=== PATIENT | male | born 1945 | race Caucasian/White ===

== ENCOUNTER 2020-01-30 16:50 | Outpatient (CLI) | payer MEDICARE, SELFPAY ==
--- NOTE | 2020-01-30 16:54 | CT_ITS ---
WS: [id number] CT ABDOMEN AND PELVIS NONCONTRAST HISTORY: ACUTE RIGHT FLANK PAIN TECHNIQUE: Imaging performed through the abdomen and pelvis. Coronal and sagittal reformats are submi tted. All CT scans at [facility] use at least one of these dose optimization techniques: automated exposure control; mA and/or kV adjustment per patient size (includes targeted exams where d ose is matched to clinical indication); or iterative reconstruction. DLP: 1184.25 mGy-cm. COMPARISON: 11/24/2016 Lower thorax: Lung bases are clear. No hiatal hernia. Liver: Normal, no mass or intrahepatic dilatation. Gallbladder: Unremarkable. Pancreas: Normal. Spleen: Normal size with granulomata. Adrenal glands: Normal. Right kidney: Normal size kidney. 2 mm nonobstructing calcification in the upper pole. Lower pole 2.3 cm low-attenuation mass which may be a cyst. Cannot further characterize on a nonenhanced study. No hydronephrosis or hydroureter. No renal or ureteral obstruction. Left kidney: Normal size kidney. There are several 2 to 3 mm calcifications which are nonobstructing. Very mild perinephric stranding. LEFT ureter is not dilated. Mild atherosclerosis with no aneurysm. No free fluid, intraperitoneal air or significant lymphadenopathy. GI tract: Normal appendix. Mild constipation and numerous diverticula in the descending and sigmoid c olon. No evidence for an acute diverticulitis. Abdominal wall: Small umbilical hernia contains fat. Pelvis: Well-distended urinary bladder. Very dense calcification in the prostate gland. No free fluid or adenopathy in the pelvis. Osseous structures: 8.4 mm anterolisthesis of L5. Bilateral L5 pars defects. Component of central and foraminal stenosis at the L4 and L5 levels. CT/CT kidney stone [id number] IMPRESSION: 1. No renal obstruction or ureteral calcifications. 2. Bilateral renal nephrolithiasis with no obstruction. 3. Diverticulosis in the descending and sigmoid colon with no acute diverticul itis. 4. Normal appendix. 5. Constipation. 6. 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
== END 2020-01-30 16:51 | disposition home or self-care (01) ==
LOC: RADWPI 16:50
PROVIDERS: Family Provider Family Medicine; PCP Family Medicine; Visit Provider Urology
DX: N20.0 Calculus of kidney (principal); K57.30 Diverticulosis of large intestine without perforation or abscess without bleeding; K59.00 Constipation, unspecified; M47.896 Other spondylosis, lumbar region
CPT/HCPCS: 74176

== ENCOUNTER 2020-02-04 12:22 | Outpatient (CLI) | payer MEDICARE, SELFPAY ==
--- NOTE | 2020-02-04 13:00 | XR_ITS ---
WS: [id number] XR KUB [id number] REASON FOR EXAM: RENAL CALCULUS FINDINGS: Calcified densities in both kidneys are noted. In the pelvis and proximal right ureter there appears to be a small calcified density. There is no obstructive pattern seen. There is normal pelvis and lumbar spine. XR/XR KUB 35174 IMPRESSION: Bilateral renal calculus A questionable small calculus in the proximal right ureter.
== END 2020-02-04 12:23 | disposition home or self-care (01) ==
LOC: RAD 12:25
PROVIDERS: Family Provider Family Medicine; PCP Family Medicine; Visit Provider Urology
DX: N20.0 Calculus of kidney (principal)
CPT/HCPCS: 74018; 81001

== ENCOUNTER 2021-02-03 12:19 | Outpatient (CLI) | payer MEDICARE, SELFPAY ==
--- NOTE | 2021-02-03 13:15 | XR_ITS ---
WS: [id number] XR KUB [id number] REASON FOR EXAM: Stones FINDINGS: No urinary tract calculi are identified on the current examination. No urinary tract calculi are iden tified on the previous examination of 02/04/2020. There are 2 small calculi in the left kidney and 2 c alculi in the right kidney on a CT scan of 01/30/2020. XR/XR KUB 51629 IMPRESSION: No urinary tract calculi are identifiable.
== END 2021-02-03 12:20 | disposition home or self-care (01) ==
LOC: RAD 12:24
PROVIDERS: PCP Family Medicine; Visit Provider Urology
DX: N20.0 Calculus of kidney (principal)
CPT/HCPCS: 74018; 81003; G0103

== ENCOUNTER 2025-08-04 12:37 | Emergency (ER) | payer MEDICARE, SELFPAY ==
[2025-08-04 12:46] VITALS: BP 104/65; PULSE 58; RESP 16; TEMP 36.6; O2SAT 97; BMI 23.5
--- OUTSIDE RECORDS SUMMARY | 2025-08-04 12:46 | XMS_ITS | Patient Health Record ---
Author Organization [facility] Address [address] [place] [address], [place] [address] Care Team Providers Care Continuous Improvement Consultant Name Role Phone ALDO PIERRE MD Primary Care Provider Unavailab ghazala Yeung Skylar Unavailable [phone] Jazlyn Javier Unavailable [phone] Allergies No Known Allergies Results Component Value Reference Range Flag Notes Basic Metabolic Panel (BMP) 92107 Reviewed date:07/29/2025 03:45:01 PM Interpretation: Performing Lab: Notes/Report: Diagnosis Description: Chronic kidney disease, stage 3b Diagnosis Description: Hypertensive chronic kidney disease with stage 1 through stage 4 chronic kidney disease, or unspecified chronic kidney disease Diagnosis Description: Type 2 diabetes mellitus with diabetic chronic kidney disease Sodium 141 136-145 MMOL/L Potassium 4.8 3.5-5.1 MMOL/L Chloride 111 98-107 MMOL/L HI CO2 20.2 20.0-31.0 MMOL/L Glucose Serum 95 71-110 MG/DL Testing p erformed at [facility], [address] [place], [place] [address] [address]. CLIA ID#: [id number] BUN 47 7-21 MG/DL HI Creat 2.06 .57-1.17 MG/DL HI Q-tsjnfm-l-benzoquinone imine (NAPQI) is a metabolite of acetaminophen, NAPQI concentrations of apparoximately 10 mg/L correlation to toxic levels of acetaminophen demonstrates a greater than or equil to 10% change in results. NAPQI concentrations greater than this may lead to falsely depressed results for patient samples. Use of this assay is not recommended for patients undergoing treatment with phenindione, due to the potential for falsely depressed results. GFR 32.4 NA Calculation pe rformed from GFR calculator provided by the [employer]. Glomerular Filtration rate(GRF) is the best overall index of kidney function. Normal GFR varies according to age,sex, body size, and declines with age. The [employer] recommends using the CKD-EPI Creatinine Equation(2020) to estimate GFR. Anion Gap 15 5-15 BUN/Creat Ratio 22.8 12.0-20.0 % HI Calcium 9.4 8.7-10.4 MG/DL Osmo Serum,Calculated 304 280-300 MOSM/KG HI Hemoglobin 02950 Reviewed date:07/29/2025 03:45:01 PM Interpretation: Performing Lab: Notes/Report: Diagnosis Description: Chronic kidney disease, stage 3b Diagnosis Description: Hypertensive chronic kidney disease with stage 1 through stage 4 chronic kidney disease, or unspecified chronic kidney disease Diagnosis Description: Type 2 diabetes mellitus with diabetic chronic kidney disease Hgb 12.0 13.5-17.5 G/DL LOW US Renal w/bladder-63814 (No t yet reviewed by provider) Interpretation: Performing Lab: Notes/Report: [id number]=iSite Schedule Confirmation (Not y et reviewed by provider) Interpretation: Performing Lab: Notes/Report: US Renal w/bladder US Renal w/bladder-03978 (No t yet reviewed by provider) Interpretation: Performing Lab: Notes/Report: See Below For Report US Renal w/bladder Diagnosis Description: Chronic kidney disease, stage 3b Read See Below For Report Schedule Confirmation Reviewed date:07/29/2025 04:10:32 PM Interpretation: Performing Lab: Notes/Report: US Renal w/bladder UA Without Micro-Auto, [place] - 19690 Reviewed date:07/04/2025 11:13:05 AM Interpretation: Performing Lab: Notes/Report: Color yellow Clarity clear Glucose - Bili - Ketones - Sp [facility] 1.020 Blood - pH 6.0 Protein - Urobili - Nitrites - Leukocytes - Reason For Referral No Information Medications Medication SIG (Take, Route, Frequency, Duration) Notes Start Date End Date Status Metoprolol Tartrate 25 MG Tablet 1 tablet with food Orally daily; Duration: 30 days 07/22/2025 Active metFORMIN HCl ER 500 MG Tablet Extended Release 24 Hour 1 tablet with evening meal Orally twice a day Active Simvastatin 20 MG Tablet 1 tablet in the evening Orally Once a day Active diphenhydrAMINE HCl 25 MG Capsule 2 capsule at bedtime as needed Orally daily Active Immunizations Vaccine Route Administration Date Status Comme nts Influenza (split), seasonal, intradermal, preservative free Unknown 10/01/2019 Administered Pneumococcal conjugate PCV 13 Unknown 01/25/2017 Admini stered Social History Social History Depression Screening Social Info Question Answer Notes PHQ-9 Little interest or pleasure in doing thin gs Not at all Feeling down, depressed, or hopeless Not at all Trouble falling or staying asleep, or sleeping t oo much Several days Feeling tired or having little energy Several da ys Poor appetite or overeating Not at all Feeling bad about yourself, or that you are a failure, or have let yourself or your family down Not at all Trouble concentrating on thi ngs, such as reading the newspaper or watching television Not at all Moving or speaking so slowly that other people could have noticed. Or the opposite ? being so fidgety or restless that you have been moving around a lot more than usual Not at all Thoughts that you would be b wei off , or of hurting yourself in some way Not at all Total Score 2 Interpretation Minimal Depression Tobacco Use: Social Info Question Answer Notes xTobacco Use/Smoking Are you a current every day sm oker Additional Details Category Social Info Options Details Miscellaneous: Marital status: 4, 3 Children: 2 : none Level of Education: 10th grade Current Employment Status Retire d Section Notes: Patient admits to smoking 5 cigars daily. Patient denies current alcohol or illegal drug use. Patient admits to previously drinking 2-3 beers 5 days a week. 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.22) Active confirmed Problem Chronic kidney disease due to hypertension (469345008533169) Hypertensive chronic kidney disease with stage 1 through stage 4 chronic kidney disease, or unspecified chronic kidney disease (I12.9) Active confirmed Problem Nephrolithiasis (92005280) Nephrolithiasis (N20.0) Active confirmed Problem Gout (01770365) Gout, unspecifie d cause, unspecified chronicity, unspecified site (M10.9) Active confirmed Problem Benign prostatic hyperplasia (971712583) BPH (benign prostatic hyperplasia) (N40.0) Active confirmed Problem Recurrent nephrolithiasis (3288735159876981) Recurrent nephrolithiasis (N20.0) Active confirmed Problem Chronic kidney disease stage 3B (disorder) (889417810) Chronic kidney disease, stage 3b (N18.32) Active confirmed Vital Signs Heart Rate 84 /min 07/04/2025 Temperature 97.9 degrees Fahrenheit 07/04/2025 Height-cm 170.18 cm 07/04/2025 Oximetry 98 % 07/04/2025 Weight-kg 70.2 kg 07/04/2025 Height 67 in 07/04/2025 Weight 154.76 lbs 07/04/2025 BMI 24.24 kg/m2 07/04/2025 Encounters Encounter Location Date Provider Diagnosis [facility] [address] [place] [address] 07/04/2025 Skylar Yeung Chronic kidney disea se, stage 3b N18.32 ; Hypertensive chronic kidney disease with stage 1 through stage 4 chronic kidney disease, or unspecified chronic kidney disease I12.9 ; Type 2 diabetes mellitus with diabetic chronic kidney disease E11.22 ; Microalbuminuria R80.9 ; Symptomatic hypotension I95.9 ; Gout, unspecified cause, unspecified chronicity, unspecified site M10.9 ; Renal cyst N28.1 ; Nephrolithiasis N20.0 and BPH (benign prostatic hyperplasia) N40.0 [facility] [address] [place] [address] 08/04/2025 Jazlyn Javier [facility] [address] [place] [address] [address] [place] [address] 07/04/2025 Skylar Yeung [facility] [address] [place] [address] 07/07/2025 Skylar Yeung Symptomatic hypotens ion I95.9 and Hypertensive chronic kidney disease with stage 1 through stage 4 chronic kidney disease, or unspecified chronic kidney disease I12.9 Assessments Encounter Date Diagnosis (ICD Code) Assessment Notes Treatment Notes Treatment Clinical Notes Section Notes 07/04/2025 Chronic kidney disease, stage 3b (ICD-10 - N18.32) CKD is stage I IIb based on available records since 2019. CKD is secondary to HTN, diabetes and tubulointerstitia l disease (NSAID use with ACEi) . His symptoms are concerning for urinary retention with use of Benadryl (Tylenol PM) and history of BPH. HTN is overly controlled in clinic with unknown control at home. Suspect periods of hypotension at home given complaints of dizziness. Diabetes control is unknown. Microalbuminuria is moderate. History of nephrolithiasis, BPH and renal cysts with no routine Urology follow up. Gout is controlled without therapy. 07/04/2025 Hypertensive chronic kidney disease with stage 1 through stage 4 chronic kidney disease, or unspecified chronic kidney disease (ICD-10 - I12.9) CKD is stage III b based on available records since 2019. CKD is secondary to HTN, diabetes and tubulointerstitia l disease (NSAID use with ACEi) . His symptoms are concerning for urinary retention with use of Benadryl (Tylenol PM) and history of BPH. HTN is overly controlled in clinic with unknown control at home. Suspect periods of hypotension at home given complaints of dizziness. Diabetes control is unknown. Microalbuminuria is moderate. History of nephrolithiasis, BPH and renal cysts with no routine Urology follow up. Gout is controlled without therapy. 07/07/2025 Symptomatic hypotension (ICD-10 - I95.9) 07/07/2025 Hypertensive chronic kidney disease with stage 1 through stage 4 chronic kidney disease, or unspecified chronic kidney disease (ICD-10 - I12.9) 07/04/2025 Type 2 diabetes mellitus with diabetic chronic kidney disease (ICD-10 - E11.22) CKD is stage I IIb based on available records since 2019. CKD is secondary to HTN, diabetes and tubulointerstitia l disease (NSAID use with ACEi) . His symptoms are concerning for urinary retention with use of Benadryl (Tylenol PM) and history of BPH. HTN is overly controlled in clinic with unknown control at home. Suspect periods of hypotension at home given complaints of dizziness. Diabetes control is unknown. Microalbuminuria is moderate. History of nephrolithiasis, BPH and renal cysts with no routine Urology follow up. Gout is controlled without therapy. 07/04/2025 Microalbuminuria (ICD-10 - R80.9) CKD is stage II Ib based on available records since 2019. CKD is secondary to HTN, diabetes and tubulointerstitia l disease (NSAID use with ACEi) . His symptoms are concerning for urinary retention with use of Benadryl (Tylenol PM) and history of BPH. HTN is overly controlled in clinic with unknown control at home. Suspect periods of hypotension at home given complaints of dizziness. Diabetes control is unknown. Microalbuminuria is moderate. History of nephrolithiasis, BPH and renal cysts with no routine Urology follow up. Gout is controlled without therapy. 07/04/2025 Symptomatic hypotension (ICD-10 - I95.9) CKD is stage II Ib based on available records since 2019. CKD is secondary to HTN, diabetes and tubulointerstitia l disease (NSAID use with ACEi) . His symptoms are concerning for urinary retention with use of Benadryl (Tylenol PM) and history of BPH. HTN is overly controlled in clinic with unknown control at home. Suspect periods of hypotension at home given complaints of dizziness. Diabetes control is unknown. Microalbuminuria is moderate. History of nephrolithiasis, BPH and renal cysts with no routine Urology follow up. Gout is controlled without therapy. 07/04/2025 Gout, unspecified cause, unspecified chronicity, unspecified site (ICD-10 - M10.9) CKD is stage II Ib based on available records since 2019. CKD is secondary to HTN, diabetes and tubulointerstitia l disease (NSAID use with ACEi) . His symptoms are concerning for urinary retention with use of Benadryl (Tylenol PM) and history of BPH. HTN is overly controlled in clinic with unknown control at home. Suspect periods of hypotension at home given complaints of dizziness. Diabetes control is unknown. Microalbuminuria is moderate. History of nephrolithiasis, BPH and renal cysts with no routine Urology follow up. Gout is controlled without therapy. 07/04/2025 Renal cyst (ICD-10 - N28.1) obtain renal ultrasound CKD is stage IIIb based on available records since 2019. CKD is secondary to HTN, diabetes and tubulointerstitia l disease (NSAID use with ACEi) . His symptoms are concerning for urinary retention with use of Benadryl (Tylenol PM) and history of BPH. HTN is overly controlled in clinic with unknown control at home. Suspect periods of hypotension at home given complaints of dizziness. Diabetes control is unknown. Microalbuminuria is moderate. History of nephrolithiasis, BPH and renal cysts with no routine Urology follow up. Gout is controlled without therapy. 07/04/2025 Nephrolithiasis (ICD-10 - N20.0) obtain renal ultrasound CKD is stage IIIb based on available records since 2019. CKD is secondary to HTN, diabetes and tubulointerstitia l disease (NSAID use with ACEi) . His symptoms are concerning for urinary retention with use of Benadryl (Tylenol PM) and history of BPH. HTN is overly controlled in clinic with unknown control at home. Suspect periods of hypotension at home given complaints of dizziness. Diabetes control is unknown. Microalbuminuria is moderate. History of nephrolithiasis, BPH and renal cysts with no routine Urology follow up. Gout is controlled without therapy. 07/04/2025 BPH (benign prostatic hyperplasia) (ICD-10 - N40.0) obtain renal ultrasound with pre and post void bladder scan. CKD is stage IIIb based on available records since 2019. CKD is secondary to HTN, diabetes and tubulointerstitia l disease (NSAID use with ACEi) . His symptoms are concerning for urinary retention with use of Benadryl (Tylenol PM) and history of BPH. HTN is overly controlled in clinic with unknown control at home. Suspect periods of hypotension at home given complaints of dizziness. Diabetes control is unknown. Microalbuminuria is moderate. History of nephrolithiasis, BPH and renal cysts with no routine Urology follow up. Gout is controlled without therapy. 07/04/2025 Other Check BMP and Hgb today at [facility] for updated labs. With hypotension, hold lisinopril. Monitor blood pressure daily at home and report BP out of goal range (130/80 or less but greater than 100/50). Obtain renal ultrasound. Stop Tylenol PM and Aleve use. Follow a low sodium diet. Avoid nephrotoxins. Stay hydrated with at least 48 ounces of water per day. He was encouraged to be aware of high potassium containing foods and to avoid excessive intake of these foods. Monitor potassium level. Monitor uric acid; notify this clinic or PCP for gout symptoms. Monitor microalbuminuria; control diabetes. Consider re-establishing with Urology for BPH, renal cysts, nephrolithiasis history and LUTS. Monitor hyperparathyroidism labs. Follow up in 5-[address] labs [address] [facility] 5-10 days prior to appt BMP, PTH, phos, uric, Hgb, iron studies, urine protein, urine creat, urine microalbumin, serum albumin CKD is stage IIIb based on available records since 2019. CKD is secondary to HTN, diabetes and tubulointerstitia l disease (NSAID use with ACEi) . His symptoms are concerning for urinary retention with use of Benadryl (Tylenol PM) and history of BPH. HTN is overly controlled in clinic with unknown control at home. Suspect periods of hypotension at home given complaints of dizziness. Diabetes control is unknown. Microalbuminuria is moderate. History of nephrolithiasis, BPH and renal cysts with no routine Urology follow up. Gout is controlled without therapy. Plan Of Treatment Pending Test Test Name Order Date CT Abdomen, Pelvis w/o Contrast-86103 US Renal w/bladder-53890 07/04/2025 US Renal w/bladder-94726 07/31/2025 Schedule Confirmation 07/31/2025 Future Test Test Name Order Date Albumin 58213 12/23/2025 Basic Metabolic Panel (BMP) 69374 2025 Ferritin 56265 12/23/2025 Hemoglobin 64667 12/23/2025 Phosphorus (B) 94458 12/23/2025 Protein (U) Random 59298 12/23/2025 Uric Acid (B) 20086 12/23/2025 Microalbumin (U) Random 25776 12/23/2025 Creatinine (U) 79077 12/23/2025 UA Reflex Micro, Reflex Cult 73308, 8101 5, 19892 12/23/2025 PTH Intact 02704 12/23/2025 % Iron Saturation (Fe & TIBC)--13246,835 50 12/23/2025 Next Appt Details Provider Name:Skylar Yeung , 01/06/2026 11:00:00 AM, [address] [place] [address] [address], [place], [address], Insurance Providers Payer Name Payer Address Payer Phone Subscriber Number Group Number Insured Name Patient Relationship to Insured Coverage Start Date Coverage End Date [place] Replacement [address] [place] [phone] [id number] o Bremer, Silas Self - patient is the insured Medical (General) History Medical History History ICD Code hypertension kidney stones Diabetes High cholesterol Gout Surgical History Surgery Date(Month/Year) broken jaw broken ankle surgery for kidney stones Hospitalization History Reason Date(Month/Year) see surgical hx
--- OUTSIDE RECORDS SUMMARY | 2025-08-04 12:46 | XMS_ITS | Patient Health Record ---
Author Organization [facility] Address [address] [place] [address] Care Team Providers Care Leather Finisher Name Role Phone Antonio Crowley MD Primary Care Provider KALYN Quezada Unavailable [phone] Reason For Referral No Information Medications Medication SIG (Take, Route, Frequency, Duration) Notes Start Date End Date Status Simvastatin *Pick strength-f orm from [employer] for eRX* Active metFORMIN HCl *Pick strength-f orm from [employer] for eRX* Active Metoprolol Succinate *Reorder fr om [employer] for eRx and Interaction Alerts* Active Immunizations Vaccine Route Administration Date Status Comme nts Influenza (split), seasonal, intradermal, preservative free Unknown 10/01/2019 Administered Immunization G iven by from source eCW:: Pneumococcal conjugate PCV 13 Unknown 01/25/2017 Administered Immunization Giv en by from source eCW:: Problems Problem Type SNOMED Code ICD Code Onset Dates Problem Status W/U Status Risk Notes Problem Recurrent nephrolithiasis (7970812605068176) Recurrent nephrolithiasis (N20.0) Active confirmed Plan Of Treatment Pending Test Test Name Order Date CT Abdomen, Pelvis w/o Contrast-38398 Insurance Providers Payer Name Payer Address Payer Phone Subscriber Number Group Number Insured Name Patient Relationship to Insured Coverage Start Date Coverage End Date [place] [address] [place] [id number] [phone] [id number] iSlas Byers Self - patient is the insured Medical (General) History Medical History History ICD Code hypertension kidney stones Surgical History Surgery Date(Month/Year) broken jaw broken ankle
--- OUTSIDE RECORDS SUMMARY | 2025-08-04 12:46 | XMS_ITS | Clinical Summary ---
Author Organization [facility] Address [address] [place] [address] Care Team Providers Care Payroll And Benefits Manager Name Role Phone Clinton Partida DO Primary Care Provider [phone] Allergies No known active allergies Medications metFORMIN (GLUCOPHAGE XR) 500 mg Extended Release 24 hour tablet Take 2 Tablets (1,000 mg) by mouth 2 times daily. 360 Tablet 09/07/2020 Active lisinopriL (PRINIVIL) 10 mg tablet Take 1 Tablet (10 mg) by mouth daily. 90 Tablet 3 03/05/2021 Active sildenafiL (VIAGRA) 50 mg tablet Take 1 Tablet (50 mg) by mouth 1 time daily as needed for Erectile Dysfunction. 10 Tablet 2 03/11/2021 Active simvastatin (ZOCOR) 20 mg tablet Take 1 tablet by mouth once daily 90 Tablet 04/13/2021 Active metoprolol tartrate (LOPRESSOR) 50 mg tablet Take 1 tablet by mouth once daily 90 Tablet 04/13/2021 Active Active Problems Problem Noted Date Diagnosed Date Recurrent kidney stones 01/15/2021 Type 2 DM with diabetic peripheral angiopathy w/ o gangrene 10/09/2020 Tobacco use 10/09/2020 Type 2 diabetes mellitus wit h stage 3a chronic kidney disease, without long-term current use of insulin 07/03/2020 DM type 2 with diabetic mixed hyperlipidemia 05/2020 Hypertensive kidney disease with stage 3a chronic kidney disease 06/26/2020 Atherosclerosis of artery of right lower extremi ty 06/26/2020 Resolved Problems Problem Noted Date Diagnosed Date Resolved Date Essential (primary) hypertension 10/09/2020 01/15/2021 Immunizations Immunization Administration Dates Next Due (PREVNAR 13)(6 WKS UP) PNEUM OCOCCAL CONJUGATE (PCV13) 0.5 ML, IM 10/09/2020 INFLUENZA VACCINE QUADRIVALENT RECOMB 18 YR UP P F IM 08/25/2020 Social History Tobacco Use Types Packs/Day Years Used Date Smoking Tobacco: Every Day Cigarettes 0.3 30 Cigars Smokeless Tobacco: Never Tobacco Cessation:Ready to Q uit: No; Counseling Given: Yes Alcohol Use Standard Drinks/Week Comments Not Currently 0 (1 standard drink = 0.6 oz pur e alcohol) Sex and Gender Information Value Date Recorded Sex Assigned at Not on file Legal Sex Male 6:39 AM WINDOWS MOBILE DEVELOPER Gender Identity Not on file Sexual Orientation Not on file Last Filed Vital Signs Vital Sign Reading Time Taken Comments Blood Pressure 134/70 03/05/2021 9:33 AM CDT Pulse 60 03/05/2021 9:33 AM CDT Temperature 35.9 C (96.7 F) 03/05/2021 9:33 AM CDT Respiratory Rate 16 03/05/2021 9:33 AM CDT Oxygen Saturation 94% 03/05/2021 9:33 AM CDT Inhaled Oxygen Concentration - - Weight 77.8 kg (171 lb 9.6 oz) 03/05/2021 9:33 A M CDT Height 170.2 cm (5' 7 ) 03/05/2021 9:33 AM CDT Body Mass Index 26.88 03/05/2021 9:33 AM CDT Plan of Treatment Health Maintenance Due Date Last Done Comments DIABETES ANNUAL FOOT EXAM 1965 DTAP/TDAP/TD VACCINES (1 - Tdap) 1966 ZOSTER VACCINE (1 of 2) 1997 PNEUMOCOCCAL VACCINE 50+ YEA RS (2 of 2 - PPSV23, PCV20, or PCV21) 12/04/2020 10/09/2020 DIABETES MICROALBUMIN ANNUAL SCREEN 07/02/2021 07/02/2020 LDL CHOLESTEROL ANNUAL 07/02/2021 0, 10/09/2019, 10/09/2019 DIABETES HBA1C Q 6 MONTHS 07/15/20212020, 10/09/2020, 07/02/2020 RSV VACCINE (60+ or ) (1 - 1-dose 75+ series) 2022 Medicare Advantage ([place]) Preventative Visit/Annual Wellness Visit 11/20/2024 03/04/2024, 08/21/2023, 09/23/2021 INFLUENZA VACCINE (#1) 2025 08/25/2020 DIABETES ANNUAL RETINAL EXAM 10/11/2025, 05/03/2021, 10/09/2020, Additional history exists Procedures Procedure Name Priority Date/Time Associated Diagnosis Comments DIABETES EYE EXAM Routine 05/03/2021 HEMOGLOBIN A1C Routine 01/15/2021 9:31 AM WINDOWS MOBILE DEVELOPER DM type 2 with diabetic mixed hyperlipidemia ([facility]) Type 2 diabetes mellitus with diabetic peripheral angiopathy without gangrene, without long-term current use of insulin ([facility]) Type 2 diabetes mellitus with stage 3a chronic kidney disease, without long-term current use of insulin ([facility]) MICROALBUMIN/CREATI NINE RATIO, RANDOM UR Routine 07/02/2020 8:09 AM CDT DM type 2 with diabetic mixed hyperlipidemia ([facility]) LIPID PANEL Routine 07/02/2020 8:09 AM CDT DM type 2 with diabetic mixed hyperlipidemia ([facility]) Essential hypertension from Last 3 Months or Most Recently Relevant to Health Maintenance Results * DIABETES EYE EXAM (05/03/2021) us Abstract Spg Provider HEALTH MAINTENANCE Final R esult * (ABNORMAL) HEMOGLOBIN A1C (01/15/2021 9:31 AM WINDOWS MOBILE DEVELOPER) HEMOGLOBIN A1C 6.9(H) See Comment % 01/15/2021 9:44 PM WINDOWS MOBILE DEVELOPER [facility] EST. AVG GLUCOSE, A1C 151 mg/dL 01/15/2021 9:44 PM WINDOWS MOBILE DEVELOPER [facility] Blood Venipuncture / Unknown 01/15/2021 9:31 AM WINDOWS MOBILE DEVELOPER 01/15/2021 9:17 PM WINDOWS MOBILE DEVELOPER Narrative [facility] - 01/15/2021 9:44 PM WINDOWS MOBILE DEVELOPER HGB A1C INTERPRETATION NORMAL: <5.7% PRE-DIABETES: 5.7 - 6.4% DIABETES: 6.5% OR GREATER Falsely low A1C measurements can occur when: 1. Anemia and/or hemolytic anemia is present. 2. Hemoglobin variants present. 3. Renal failure. 4. Transfusion of blood product in the last 120 days. We recommend ordering a fructosamine test([id number]) to more accurately assess glycemic status if any of the above conditions are present. Garrett Partida MD CHEMISTRY ORDERABLES Final Resu lt Performing Organization Address [facility] Co de Phone Number [facility] CLIA# [id number] [address] [place] [address] * (ABNORMAL) MICROALBUMIN/CREATININE RATIO, RANDOM UR (07/02/2020 8:09 AM CDT) MICROALBUMIN, URINE 12.8 No Reference Range mg/dL 07/02/2020 9:39 PM CDT [facility] CREATININE, URINE 183.9 40.0 - 278.0 mg/dL 07/02/2020 9:39 PM CDT [facility] Comment:Reference Range vari es with fluid intake and diet. MICROALBUMIN/ CREAT RATIO, UR 69.6(H) <17.0 mg/g 07/02/2020 9:39 PM T [facility] Urine URINE SPECIMEN OBTAINED BY CLEAN CATCH PROCEDURE / Unknown Collection / Unknown 07/02/2020 8:09 AM CDT 07/02/2020 8:08 PM CDT Narrative [facility] - 07/02/2020 9:39 PM CDT Condition Microalbumin/Creat ratio Normal Males <17 Normal Females <25 Microalbuminuria Males 17-299 Microalbuminuria Females 25-299 Overt proteinuria >=300 Garrett Partida MD URINE ORDERABLES Final Result Performing Organization Address [facility]/ZIP Co de Phone Number [facility] CLIA# [id number] [address] [place] [address] * (ABNORMAL) LIPID PANEL (07/02/2020 8:09 AM CDT) CHOLESTEROL 106 <200 mg/dL 07/02/2020 9:19 PM CDT [facility] TRIGLYCERIDE 167(H) <150 mg/dL 07/02/2020 9:19 PM CDT [facility] HDL 33(L) 40 - 59 mg/dL 07/02/2020 9:19 PM CDT [facility] LDL CALCULATED 40 <100 mg/dL 07/02/2020 9:19 PM CDT [facility] NON-HDL CHOLESTEROL 73 <130 mg/dL 07/02/2020 9:19 PM T [facility] Blood Venipuncture / Unknown 07/02/2020 8:09 AM CDT 07/02/2020 8:14 PM CDT Narrative [facility] - 07/02/2020 9:19 PM CDT TOTAL CHOLESTEROL mg/dL Desirable <200 Borderline high 200-239 High >=240 TRIGLYCERIDES mg/dL Normal <150 Borderline high 150-199 High 200-499 Very high >=500 HDL CHOLESTEROL mg/dL Low <40 Normal 40-59 Desirable >=60 NON HDL CHOLESTEROL mg/dL Optimal <130 Near Optimal 130-159 Borderline High 160-189 Very High >=190 CALCULATED LDL mg/dL LDL <70, OPTIMAL if have Atherosclerotic cardiovascular disease (ASCVD) or intermediate or higher (>7.5%) 10 year risk of ASCVD including most adults with diabetes. LDL <100, Optimal in adult patients with low (<7.5%) 10 year ASCVD risk LDL 100-160, Suboptimal LDL >160, High LDL >190, Very high ATPIII Guidelines Reference Ranges for Lipid Panels (NCEP/AMA) . us Garrett Partida MD CHEMISTRY ORDERABLES Final Resu lt [facility] CLIA# [id number] [address] [place] [address] from Last 3 Months or Most Recently Relevant to Health Maintenance Insurance [facility] Care Teams Payroll And Benefits Manager Relationship Specialty Start Date End Date Clinton Partida DO [address] [place] [address] PCP - General Family Practice 10/09/20
--- OUTSIDE RECORDS SUMMARY | 2025-08-04 12:46 | XMS_ITS | Clinical Summary ---
Author Organization [facility] Facility Address [address] [place] [address] Care Team Providers Care Microsoft Solutions Architect Name Role Phone Hernán Bernal MD Primary Care Provider [phone] Social History Tobacco Use Types Packs/Day Years Used Date Smoking Tobacco: Never Assessed Sex and Gender Information Value Date Recorded Sex Assigned at Not on file Legal Sex Male 10:59 AM EDT Gender Identity Not on file Sexual Orientation Not on file Plan of Treatment Health Maintenance Due Date Last Done Comments Pneumococcal Vaccine: 50+ Years (2 of 2 - PPSV23, PCV20, or PCV21) 12/04/2020 10/09/2020, 01/25/2017 Diabetes: Hemoglobin A1C 03/19/2025 01/15/2021 Diabetes: Ophthalmology Exam 03/19/2025 Diabetes: Pedal Pulse Checked 03/19/2025 Diabetes: Sensory Foot Exam 03/19/2025 Diabetes: Visual Foot Exam 03/19/2025 Influenza Vaccine (#1) 2025 , 08/25/2020, 10/01/2019 Hepatitis B Vaccine Aged Out No longe r eligible based on patient's age to complete this topic Insurance [place]BS [place] Adv ([id number]) Care Teams Microsoft Solutions Architect Relationship Specialty Start Date End Date Hernán Bernal MD [facility] [address] [phone] PCP - General 03/19/25
--- NOTE | 2025-08-04 14:00 | ECG_ITS ---
[facility] Test Date: 2025-08-04 Pat Name: Silas Byers Department: Room: Gender: Male Pilot Submersible: : 1945 Requested By: Jovani Garcia Order Number: [id number] Isidro MD: Ranjit Levin M.D. Measurements Intervals [place] Rate: 58 P: 79 WV: 181 QRS: 70 QRSD: 91 T: 68 QT: 400 QTc: 395 Interpretive Statements SINUS BRADYCARDIA WITH SINUS ARRHYTHMIA Compared to ECG 11/28/2016 14:53:23 Intraventricular conduction delay no longer present Electronically Signed On 08-05-2025 18:11:42 CDT by Ranjit Levin M.D. [id number]
[2025-08-04 15:01] VITALS: BP 100/61; PULSE 54; O2SAT 95
--- NOTE | 2025-08-04 15:04 | XRR_ITS ---
PROCEDURE INFORMATION: Exam: XR Chest Exam date and time: 08/04/2025 3:06 PM Age: 79 years old Clinical indication: Chest pressure; Chest pain, dizzy TECHNIQUE: Imaging protocol: Radiologic exam of the chest. Views: 1 view. COMPARISON: CR XR KUB [id number] 02/03/2021 1:05 PM FINDINGS: Lungs: Unremarkable. No consolidation. Pleural spaces: Unremarkable. No pleural effusion. No pneumothorax. Heart/Mediastinum: Unremarkable. No cardiomegaly. Bones/joints: Degenerative changes are noted in the glenohumeral joints and acromioclavicular joints. XR/XR chest 1V portable [id number] IMPRESSION: No acute findings.
--- NOTE | 2025-08-04 15:04 | W.ED.CHESTPA ---
HPI - Chest Pain General: Chief Complaint: Chest Pain Stated Complaint: cp, off balance, low bp, [place] sent Time Seen by Provider: 08/04/25 14:59 History of Present Illness: 79-year-old male presents emergency room complaining of low blood pressure generally not feeling well the last couple of days. Chest pain was listed as his chief complaint however when you talk to him and when he talked to the nurse he denied having any chest pain at all. He has not had any shortness of breath no nausea or vomiting. No dysuria urgency weakness. He has had some loose stools. Describes generally feeling achy for the last couple of days. Associated symptoms: Deny abdominal pain, dyspnea or fever(s) Related Data Home Medications ?Medication ?Instructions ?Recorded ?Confirmed metformin 500 mg tablet See Rx Instructions PO DAILY 02/04/20 02/03/21 metoprolol tartrate 50 mg tablet 50 mg PO DAILY 02/04/20 02/03/21 simvastatin 20 mg tablet 20 mg PO DAILY 02/04/20 02/03/21 Previous Rx's ?Medication ?Instructions ?Recorded doxycycline hyclate 100 mg capsule 100 mg PO BID 14 days #28 caps 08/04/25 Allergies Allergy/AdvReac Type Severity Reaction Status Date / Time No Known Allergies Allergy Unverified 02/03/21 13:30 Review of Systems Const: Reports: fatigue and malaise; Denies: fever(s) or chills Card: Denies: chest pain Resp: Denies: dyspnea GI: Denies: abdominal pain : Denies: dysuria, urinary frequency or urinary urgency Musc: Denies: neck pain or back pain Skin/Breast: Denies: rash [facility] ED PFSH: Medical History Status post extracorporeal shock wave therapy Chronic prostatitis Renal calculus, left Family History Father , IN HOUSE FIRE No problems noted. Mother , at age 71 Kidney disease Social History Smoking and tobacco/nicotine status: current some day tobacco/nicotine user cigars Alcohol intake: never Marital status: Current occupational status: retired Physical Exam Const: GENERAL APPEARANCE: cooperative ORIENTATION/CONSCIOUSNESS: Yes awake, Yes oriented to person, Yes oriented to place and Yes oriented to time HENMT: COMMON NORMALS: normocephalic, atraumatic and hearing grossly normal bilaterally HEAD & SCALP: normocephalic and atraumatic Resp: COMMON NORMALS: normal respiratory effort, No retractions, No use of accessory muscles and clear to auscultation bilaterally AUSCULTATION: clear to auscultation bilaterally Cardio: COMMON NORMALS: regular rate, regular rhythm and No murmurs present (Cardio) RATE: regular rate RHYTHM: regular rhythm GI: COMMON NORMALS: Soft to palpation and No hepatosplenomegaly present AUSCULTATION: Yes normoactive bowel sounds PALPATION: Yes Soft to palpation, No Tenderness to palpation present (GI), No Guarding due to palpation present (GI) and Yes No hepatosplenomegaly present : OTHER: Mild rash in the groin region originally from tick bite. Extremity: COMMON NORMALS: normal to inspection, capillary refill normal, no clubbing, cyanosis or edema, no calf tenderness and no pedal edema Neuro: SENSORIUM/ORIENTATION: Yes oriented to person, Yes oriented to place and Yes oriented to time Skin: COMMON NORMALS: no rashes or lesions noted GENERAL SKIN EXAM: no rashes or lesions noted Course Vital Signs: Vital signs: Vital Signs Temperature 97.9 F 08/04/25 12:46 Pulse Rate 58 L 08/04/25 15:39 Respiratory Rate 16 08/04/25 12:46 Blood Pressure 101/68 08/04/25 15:39 Pulse Oximetry 96 08/04/25 15:39 Oxygen Delivery Me thod Room Air 08/04/25 12:46 MDM - Chest Pain Medical Decision Making Suspect tickborne illness. Discussed with infectious disease Dr. Dodson she agrees. I will get a tick panel also get tularemia. He should have a repeat CBC in a week initiate doxycycline. Referred to PCP for follow-up. Lab Data 08/04/25 15:31 08/04/25 15:31 Radiology Impressions Chest X-Ray 08/04/25 15:04 IMPRESSION: No acute findings. Laboratory Results WBC 1.93 10^3/uL (3.29-11.43) L 08/04/25 15:31 RBC 4.10 10^6/uL (3.85-5.65) 08/04/25 Hgb 13.10 g/dL (11.27-16.99) 08/04/25 Hct 39.9 % (37-53) 08/04/25 MCV 97.3 fl (82-101) 08/04/25 MCH 32.0 pg (27-33) 08/04/25 MCHC 32.8 g/dL (30-55) 08/04/25 RDW 12.9 % (12.1-15.1) 08/04/25 Plt Count 121 10^3/cmm (157-399) L 08/04/25 MPV 10.1 fL (7.4-10.4) 08/04/25 Neut % (Auto) 46.2 % 08/04/25 Lymph % (Auto) 39.9 % 08/04/25 [place] % (Auto) 12.4 % 08/04/25 Eos % (Auto) 0.5 % 08/04/25 Baso % (Auto) 0.5 % 08/04/25 Neut # (Auto) 0.89 10^3/uL (1.8-7.7) L* 08/04/25 Lymph # (Auto) 0.8 10^3/uL (0.8-4.8) 08/04/25 [place] # (Auto) 0.2 10^3/uL (0.2-0.9) 08/04/25 Eos # (Auto) 0.0 10^3/uL (0.0-0.8) 08/04/25 Baso # (Auto) 0.0 10^3/uL (0.0-0.1) 08/04/25 Nucleated RBC % (auto) 0 % 08/04/25 Nucleated RBCs # 0.0 /100WBC 08/04/25 Sodium 135 mmol/L (136-145) L 08/04/25 Potassium 5.1 mmol/L (3.5-5.1) 09/15/25 15:31 Chloride 103 mmol/L (98-107) 08/04/25 15:31 Carbon Dioxide 21 mmol/L (22-29) L 08/04/25 15:31 Anion Gap 16.1 (5-19) 08/04/25 15:31 BUN 29 mg/dL (8-23) H 08/04/25 15:31 Creatinine 2.3 mg/dL (0.7-1.2) H 08/04/25 15:31 GFR Calculation Not Reportable 08/04/25 15:31 Glucose 101 mg/dL (65-115) 08/04/25 15:31 Calculated Osmolality 286 mOsm/kg (285-295) 08/04/25 15:31 Calcium 8.4 mg/dL (8.5-10.5) L 08/04/25 15:31 Total Bilirubin 0.2 mg/dL (0.15-1.2) 08/04/25 15:31 AST 47 U/L (0-40) H 08/04/25 15:31 ALT 38 U/L (0-41) 08/04/25 15:31 Alkaline Phosphatase 33 U/L (40-130) L 08/04/25 15:31 Creatine Kinase 157 U/L (39-308) 08/04/25 15:31 Total Protein 6.8 g/dL (6.6-8.7) 08/04/25 15:31 Albumin 4.2 g/dL (3.5-5.2) 08/04/25 15:31 Globulin 2.6 g/dL (1.3-4.6) 08/04/25 15:31 All radiology interpretation(s) finalized by discharge Discharge Plan Discharge Patient Disposition: Home Clinical Impression: At high risk for tick borne illness, Neutropenia Condition: Stable Prescriptions: New doxycycline hyclate 100 mg capsule 100 mg PO BID 14 Days Qty: 28 0RF No Action metformin 500 mg tablet See Rx Instructions PO DAILY Rx Instructions: 4 tablets PO daily; metoprolol tartrate 50 mg tablet 50 mg PO DAILY simvastatin 20 mg tablet 20 mg PO DAILY Discharge Orders: Discharge ED (Routine); Ordered 08/04/25 Ordered By: Jovani White Referrals: Kaveh Franks DO [Physician, Family Practice] Karen Hung MD [Physician, Family Practice] Melody Goodwin MD [Staff Physician, Family Practice] Klever Bell MD [Physician, Family Practice] Discharge Diet: Usual diet Discharge Activity: Increase activity as tolerated Patient Instructions: Opioid Safety, Pain Management, Patient Portal & Lilia Instructions Activity Restrictions/Additional Instructions: [facility]. It is very important that you follow up as instructed or that you return to the Emergency Department should you have concerns or if your condition changes or worsens in any way. Emergency department visits are focused on emergent conditions, in some cases you may require further evaluation on an outpatient basis. You were seen emergency room for generally not feeling well your platelet and your overall white count were low. Your kidney function is slightly elevated but this has been chronic. Your AST was slightly elevated as well. We discussed with the infectious disease doctor. They think this may be a tick related illness a tick panel was ordered. You should follow-up with primary care doctor. Under the referral section in your discharge instructions are listed several doctors who are taking patients in this area. You should see one of them within the next week and have a repeat CBC done as well as liver functions and review of the tick panel that was ordered today. (Please note that included in your discharge packet is information concerning opioid safety and pain management. This information is given to all patients were discharged from the ER regardless of their discharge diagnosis or the medicines they usually take or are prescribed.) Print Language: Nigerian Coding Level of Care Code ED Director Of Rooms for Mary Jane Santana
[2025-08-04 15:39] VITALS: BP 101/68; PULSE 58; O2SAT 96
[2025-08-04 15:41] LABS: Hematocrit 39.9 % (37-53); Hemoglobin 13.10 g/dL (11.27-16.99); Mean Corpuscular HGB Conc 32.8 g/dL (30-55); Mean Corpuscular Hemoglobin 32.0 pg (27-33); Mean Corpuscular Volume 97.3 fl (82-101); Nucleated Red Blood Cells % 0 %; Platelet Count 121 10^3/cmm (157-399); Red Blood Count 4.10 10^6/uL (3.85-5.65); White Blood Count 1.93 10^3/uL (3.29-11.43)
[2025-08-04 15:58] LABS: Alanine Aminotransferase 38 U/L (0-41); Albumin Level 4.2 g/dL (3.5-5.2); Alkaline Phosphatase 33 U/L (40-130); Anion Gap 16.1 (5-19); Aspartate Amino Transferase 47 U/L (0-40); Blood Urea Nitrogen 29 mg/dL (8-23); Calcium 8.4 mg/dL (8.5-10.5); Carbon Dioxide 21 mmol/L (22-29); Chloride 103 mmol/L (98-107); Creatinine Clr Calc Pharmacy 25.4418; Globulin 2.6 g/dL (1.3-4.6); Glucose 101 mg/dL (65-115); Osmolality Calculated 286 mOsm/kg (285-295); Potassium 5.1 mmol/L (3.5-5.1); Sodium 135 mmol/L (136-145); Total Protein 6.8 g/dL (6.6-8.7)
[2025-08-04 16:06] LABS: Slide Review Slide Review Perform
[2025-08-04 16:39] LABS: Respiratory Syncytial Virus Ce NEGATIVE (Negative); SARS-CoV-2 PCR NEGATIVE (Negative)
[2025-08-04 16:48] LABS: LAB Peripheral Smear Sent for Review
--- NOTE | 2025-08-04 17:04 | ECG_ITS ---
[facility] Test Date: 2025-08-04 Pat Name: Silas Byers Department: Room: Gender: Male Scientific Systems Analyst: : 1945 Requested By: Jovani Garcia Order Number: [id number] Isidro MD: Ranjit Levin M.D. Measurements Intervals [place] Rate: 52 P: 62 MD: 143 QRS: 64 QRSD: 86 T: 77 QT: 398 QTc: 371 Interpretive Statements SINUS BRADYCARDIA WITH SINUS ARRHYTHMIA Compared to ECG 08/04/2025 12:48:15 No significant changes Electronically Signed On 08-05-2025 18:10:11 CDT by Ranjit Levin M.D. [email or web address] [id number]
[2025-08-04 17:21] VITALS: BP 104/48; PULSE 54; O2SAT 96
== END 2025-08-04 17:22 | disposition home or self-care (01) ==
PROVIDERS: Emergency Provider Family Medicine
DX: D70.9 Neutropenia, unspecified (principal); Z79.84 Long term (current) use of oral hypoglycemic drugs; F17.290 Nicotine dependence, other tobacco product, uncomplicated
CPT/HCPCS: 71045; 80053; 80503; 82550; 85025; 86160; 86618; 86666; 86668; 86757; 87637; 93005; 96360; 96361; 99285; J7030

== ENCOUNTER 2025-10-08 09:26 | Outpatient (CLI) | payer MEDICARE, SELFPAY ==
--- NOTE | 2025-10-08 09:33 | XR_ITS ---
WS: [id number] XR foot LT min 3V* [id number] REASON FOR EXAM: GOUT FINDINGS: No fracture or focal bone lesion. No periosteal reaction or bone erosion. Subluxations at the PIP joints of the second through the fifth toes. Significant subluxation of the DIP joint of the first toe. Remainder of the joint spaces in the forefoot are intact and relatively well preserved. Joint spaces of the midfoot are intact with mild narrowing and subchondral sclerosis. The sustentaculum talus and the mid and anterior subtalar joint are not readily identifiable. 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 Large anterior calcaneal enthesophyte. XR/XR foot LT min 3V* [id number] IMPRESSION: Forefoot subluxations. Question of talocalcaneal coalition as above. Calcaneal enthesophyte.
--- NOTE | 2025-10-08 09:33 | XR_ITS ---
WS: [email or web address] XR foot RT min 3V* [id number] REASON FOR EXAM: GOUT FINDINGS: No fracture or focal bone lesion. No periosteal reaction or bone erosion. Subluxations at the PIP joint of the second through the fifth toes. Significant subluxation of the first DIP joint. Remainder of the joint spaces of the forefoot are intact and well preserved. Joint spaces of the midfoot are intact. Joint space of the subtalar joint is intact and well preserved. Small anterior and posterior calcaneal enthesophytes. XR/XR foot RT min 3V* [id number] IMPRESSION: Forefoot subluxations. Calcaneal enthesophytes.
== END 2025-10-08 09:27 | disposition home or self-care (01) ==
LOC: RAD 09:28
PROVIDERS: PCP Family Medicine; Visit Provider Family Medicine
DX: M10.9 Gout, unspecified (principal); S93.331A Other subluxation of right foot, initial encounter; S93.332A Other subluxation of left foot, initial encounter; X58.XXXA Exposure to other specified factors, initial encounter; M77.32 Calcaneal spur, left foot; M77.31 Calcaneal spur, right foot
CPT/HCPCS: 73630

== ENCOUNTER → 2025-10-09 10:24 | Outpatient (BNVA) | payer MEDICARE, SELFPAY | PROVIDERS: PCP Family Medicine; Visit Provider Podiatrist Foot & Ankle Surgery | DX: M10.9 Gout, unspecified (principal); E11.42 Type 2 diabetes mellitus with diabetic polyneuropathy; M20.41 Other hammer toe(s) (acquired), right foot; M20.42 Other hammer toe(s) (acquired), left foot; Z79.84 Long term (current) use of oral hypoglycemic drugs | CPT/HCPCS: 20600; 99204; J1100; J3301; J9999 ==